=== PATIENT | female | born 1940 | race Caucasian/White ===

== ENCOUNTER → 2018-04-13 | Day surgery (SDC) | payer OTHER ==
[~2018-04-13] MED LIST: ASPIRIN EC 325 MG TAB PO ONE; ATROPINE SULFATE 1 MG/10 ML SYR IVP PRN; CLOPIDOGREL BISULFATE 75 MG TAB ONE; CLOPIDOGREL BISULFATE 75 MG TAB PO ONE; DIAZEPAM 5 MG TAB PO ONE; FAMOTIDINE 20 MG TAB PO ONE; IOPAMIDOL (ISOVUE 370) 100 ML BTL IV ONE; IOPAMIDOL (ISOVUE-300) 100 ML BTL ONE; IOPAMIDOL (ISOVUE-370) 150 ML BTL IV ONE; LIDOCAINE 1% 300 MG/30 ML SDV ONE; MIDAZOLAM 2 MG/2 ML VIAL ONE; NITROGLYCERIN 0.4 MG BTL SL PRN; NS 1,000 ML IV ONE; ONDANSETRON 4 MG/2 ML VIAL IVP PRN; diphenhydrAMINE 25 MG CAP PO ONE; fentaNYL 100 MCG/2 ML INJ ONE; hydrALAZINE 20 MG/ML VIAL ONE
--- NOTE | 2018-04-13 09:21 | CPEKG ---
Heart Rate: 56 RR Interval: 1071 P-R Interval: 196 QRSD Interval: 102 QT Interval: 444 QTC Interval: 429 P [place]: 64 QRS [place]: -15 T Wave [place]: 95 EKG Severity - ABNORMAL ECG - EKG Impression: SINUS RHYTHM EKG Impression: PROBABLE LEFT VENTRICULAR HYPERTROPHY Electronically Signed By: Rosendo Hathaway 13-Apr-2018 11:05:29
--- NOTE | 2018-04-13 09:36 | PDPROPOC ---
Sedation Plan of Care Sedation Plan of Care: mental status noted, patient educated of risks, benefits , alternatives, patient can tolerate sedation ASA Classification: ASA 2 Planned drugs: fentanyl, midazolam Mallampati Score: Class 2 Mallampati Reference Image: Patient passed 3-3-2 rule?: Yes
--- NOTE | 2018-04-13 09:37 | PDHPUP ---
History & Physical Update H&P update statement: This history and physical update is based on an assessment of the patient which was completed after admission or registration (within 24 hours), but prior to the surgery/procedure. H&P update: H&P reviewed & patient examined, no change in patient's condition since H&P completed
[2018-04-13 09:57] LABS: INR 1.02 (0.83-1.16); PLATELET COUNT 134 10^3/uL (150-400); PROTIME(PATIENT) 13.6 SEC (12.0-15.0)
--- NOTE | 2018-04-13 10:20 | GCON ---
[f rep st] CONSULTATION DATE OF CONSULTATION: 04/13/2018 REFERRING PHYSICIAN: Sony Marti MD Patient is seen at the request of Dr. Marti with the patient's permission. IMPRESSION: 1. Critical aortic stenosis with presyncope. 2. Obesity. 3. Hypertension. 4. Insulin-dependent diabetes mellitus. 5. Gastroesophageal reflux disease osteoporosis. 6. Breast cancer without residual. RECOMMENDATIONS: This patient appears somewhat frail and has had several falls, more due to balance, but could be related to aortic stenosis as well. She does complain of dyspnea on exertion and has b een found to have critical aortic stenosis, undergoing diagnostic left heart cath today. If there is no significant or not treatable coronary disease with a PCI, I would agree with TAVR being her best option. Her surgical risks would be increased somewhat because of her obesity and diabetes, but I be lieve her rehab would be markedly prolonged. Given her obesity and her age and comorbidities, I do f eel that she represents a more frail candidate and would be better served with TAVR; however, if she is found to have critical coronary disease not treatable by PCI, we would offer her surgical interven tion at moderate risk. CHIEF COMPLAINT: The patient is here because of progressive dyspnea on exertion and chest pain over the last several months. She had a recent fall, it is uncertain whether it is balance or related to aortic stenosis. She did not lose consciousness. She did hit her head without residual. Her exerci se stress test confirmed velocities greater than 400. PAST MEDICAL HISTORY: As stated previously. PAST SURGICAL HISTORY: Thymectomy, cholecystectomy, hysterectomy, knee replacements x2, mastectomy o n the right, and a trigger finger on the right release. MEDICATIONS: Documented in her H and P. PHYSICAL EXAMINATION: GENERAL: This is very alert, oriented, cooperative, and pleasant 78-year-old female alone in the room awaiting catheterization. She is obese. HEART: Rate is regular with signi ficant murmur. LUNGS: Clear. ABDOMEN: Soft, nontender, markedly protuberant. Bowel sounds are ac tive. EXTREMITIES: There is 1+ pretibial edema. Pedal pulses are 2+ and symmetrical. SOCIAL HISTORY: Socially, she never smoked and does not drink, and she lives with her daughter. Her exercise is limited due to her dyspnea on exertion. /[id number]/MODL
--- NOTE | 2018-04-13 13:31 | CPIP ---
[f rep st] INVASIVE CARDIAC PROCEDURE DATE OF PROCEDURE: 04/13/2018 INDICATION FOR PROCEDURE: Shortness of breath, aortic stenosis. PROCEDURE: 1. Left groin sheathogram. 2. 7-[place]stonian sheath left common vein. 3. Right heart catheterization with [place] catheter. 4. Bilateral selective angiography. 5. Abdominal aortogram. HISTORY: Briefly, this is a 78-year-old female with worsening shortness of breath over the last 6 mo nths. She had an echocardiogram performed, which showed severe aortic stenosis with a valve area of 1 .0 cm; however, her mean gradients were only moderately increased. She underwent a dobutamine stress echo, which showed that these gradients increased significantly with the dobutamine infusion. Due to findings, patient consented for right and left heart catheterization. DESCRIPTION OF PROCEDURE: After informed consent, the patient was brought to [facility] where the left groin was prepped and draped in sterile fashion. Using lidocaine, a short 6-Estonian s reyna, left femoral artery verified angiographically. A 7-Estonian sheath, left common vein. [place] catheter was then advanced. RA wedge pressure was mean of 17, A-wave 17, V-wave 20, PA pressure was s ystolic 63, diastolic 31 with a mean of 42. RV pressure was systolic 54, diastolic of 12 with an end of 17. RA pressure was mean of 18, A-wave 20 with a V-wave of 20. Cardiac output was measured to be 5 .0 by Ton with a cardiac index of 2.8. After this was obtained, the right heart catheter was removed. A JL catheter was then advanced. Image s of the left coronary artery revealed normal left main. Left circumflex artery appeared to be a left dominant circulation giving off a healthy left LPDA. There appeared to be a marginal 1 proximally, w hich appeared to be free of disease. The LPDA and LPS appeared to be healthy and free of disease. The LAD was a long vessel, which appeared to be diminutive distally, but appeared to be healthy and free of disease. There was a large diagonal artery coming off the midportion of the LAD, which appeared t o be healthy and free of disease. After the images were obtained, the JR4 catheter was removed. The J R4 catheter was advanced to the right coronary artery. The right coronary artery revealed a nondomina nt RCA with no significant disease. After the images were obtained, the JR4 catheter was removed. The pigtail catheter was advanced to the ascending aorta. Abdominal aortogram was obtained, which norberto wed patent ascending aorta, patent bilateral common external, internal iliac arteries. The pigtail ca theter was removed over the 0.035 wire. The right groin was closed with 6-[place] Angio-Seal. The left groin was closed with manual pressure. Patient tolerated the procedure well with no complications. IMPRESSION: 1. Essentially bilaterally normal coronary arteries and left dominant circulation. 2. Moderately severe pulmonary hypertension. PLAN: Given the patient's underlying symptoms, we will obtain CT of the chest, abdomen, and pelvis, as well as carotid ultrasound and lower extremity venous ultrasound as well for further assessment. T he patient should be able to be discharged later today after test are performed. /[id number]/MODL
== END | disposition home or self-care (01) ==
LOC: FCATH 08:57
PROVIDERS: ATTEND Internal Medicine Cardiovascular Disease
PROC: B2111ZZ Fluoroscopy of Multiple Coronary Arteries using Low Osmolar Contrast (ICD-10-PCS; principal; 2018-04-13)
PROC: B2161ZZ Fluoroscopy of Right and Left Heart using Low Osmolar Contrast (ICD-10-PCS; principal; 2018-04-13)
PROC: 4A023N8 Measurement of Cardiac Sampling and Pressure, Bilateral, Percutaneous Approach (ICD-10-PCS; principal; 2018-04-13)
DX: I35.0 Nonrheumatic aortic (valve) stenosis (principal); I27.20 Pulmonary hypertension, unspecified
CPT/HCPCS: C1760; J0360; J1644; J2250; J3010; Q9967

== ENCOUNTER 2018-12-18 13:41 | Observation (INO) | payer OTHER ==
[2018-12-18 14:33] LABS: PLATELET COUNT 150 10^3/uL (150-400)
--- NOTE | 2018-12-18 14:39 | EDPHY ---
H & P Stated Complaint: irregular heart rate chest pressure for 3 days Time Seen by Provider: 12/18/18 14:07 HPI/ROS: CHIEF COMPLAINT: Chest pressure, shortness of breath HISTORY OF PRESENT ILLNESS: 78-year-old female s/p AVR presents with chest pain and shortness of breath. 2 days ago, she was walking up stairs and 1st noticed exertional shortness of breath, associated with moderate chest pressure. The symptoms resolved with rest. Since that time, she has continued to have moderate exertional chest pain and shortness of breath. Associated with intermittent palpitations. On Plavix. No recent illness or fever. No prior history of CAD. REVIEW OF SYSTEMS: complete 10 point ROS reviewed and is negative except for the noted elements in the HPI Source: Patient - Personal History Current Tetanus Diphtheria and Acellular Pertussis (TDAP): Yes - Medical/Surgical History Hx Asthma: No Hx Chronic Respiratory Disease: No Hx Diabetes: Yes Hx Cardiac Disease: Yes Hx Renal Disease: No Hx Cirrhosis: No Hx Alcoholism: No Hx HIV/AIDS: No Hx Splenectomy or Spleen Trauma: No Other PMH: aortic valve replacement - Social History Smoking Status: Never smoked Alcohol Use: Sober Drug Use: None - Physical Exam Exam: General Appearance: Alert, pleasant Eyes: Pupils equal and round, no conjunctival pallor ENT, Mouth: Mucous membranes moist Neck: Normal inspection Respiratory: Lungs are clear to auscultation Cardiovascular: Regular rate and rhythm Gastrointestinal: Abdomen is soft and nontender Neurological: A&O, nonfocal exam Skin: Warm and dry, no rash Extremities: Nontender, no pedal edema Psychiatric: Mood and affect normal Constitutional: Initial Vital Signs Temperature (C) 37 C 12/18/18 13:52 Heart Rate 70 12/18/18 13:52 Respiratory Rate 18 12/18/18 13:52 Blood Pressure 173/70 H 12/18/18 13:52 O2 Sat (%) 93 12/18/18 13:52 O2 Delivery Mode Room Air Allergies/Adverse Reactions: cinnamon Allergy (Verified 12/18/18 13:49) codeine Allergy (Verified 12/18/18 13:49) Rash morphine Allergy (Verified 12/18/18 13:49) Dyspnea Penicillins Allergy (Verified 12/18/18 13:49) Rash fragrances Allergy (Uncoded 04/09/18 09:38) Home Medications: Medication Instructions Recorded Albuterol [Proventil Inhaler HFA 1 - 2 puffs IH DAILY PRN 04/09/18 (*)] Aspirin [Aspirin 81mg (*)] 81 mg PO DAILY 04/09/18 Insulin Glargine [Lantus 100 20 - 50 units SC HS 04/09/18 UNITS/ML] Levothyroxine [Synthroid 100 mcg 100 mcg PO RITTER 04/09/18 (*)] Levothyroxine [Synthroid 50 mcg 50 mcg PO MOTUWETHFRSA 04/09/18 (*)] Lisinopril [Zestril 2.5 mg (*)] 2.5 mg PO DAILY 04/09/18 Omeprazole 20 mg PO DAILY 04/09/18 Triamcinolone 0.1% [Triamcinolone 1 lance TP DAILY PRN 04/09/18 0.1% Cream (*)] Acetaminophen [Tylenol 325mg (*)] 650 mg PO Q6HRS tab 04/29/18 Clopidogrel Bisulfate [Plavix (*)] 75 mg PO DAILY #30 tab 04/29/18 C/E/Zn/Cu/OM3/DHA/EPA/LUT/ZEAX 1 each PO BID 12/18/18 [Preservision Areds 2 Softgel] Carvedilol [Coreg (*)] 6.25 mg PO BIDMEAL 12/18/18 Insulin Lispro [Humalog Kwikpen 6 - 25 unit SQ TIDMEAL 12/18/18 U-100] predniSONE 40 mg PO DAILY #8 tablet 12/20/18 Medical Decision Making - Diagnostics EKG Interpretation: EKG interpreted by me reveals normal sinus rhythm, rate 74, left bundle branch block. Interpretation: Abnormal EKG Similar to EKG dated 04/28/2018. Imaging Results: CXR: cardiomegaly Imaging: I viewed and interpreted images myself ED Course/Re-evaluation: This pt presents with exertional cp and SOB. Concern for ACS, pulm edema. stat EKG: no ischemia or dysrhythmia, CXR unremarkable. trop nl. d-dimer minimally elevated, normal when corrected for age. Low riskfor PE by Well's criteria. Further eval for PE not indicated. BNP elevated, c/w CHF. Lasix 20mg IV given. The hospitalist service was consulted for admission. Pt stable throughout her ED stay. - Data Points Laboratory Results: Laboratory Results 12/18/18 14:11 12/18/18 14:11 Medications Given: Discontinued Medications Aspirin (Aspirin) 81 mg PO DAILY [facility] Stop: 06/17/19 08:59 Last Admin: 12/20/18 08:10 Dose: 81 mg Carvedilol (Coreg) 6.25 mg PO BIDMEAL [facility] Stop: 06/16/19 20:29 Last Admin: 12/20/18 08:11 Dose: 6.25 mg Clopidogrel Bisulfate (Plavix) 75 mg PO DAILY [facility] Stop: 06/17/19 08:59 Last Admin: 12/20/18 08:11 Dose: 75 mg Enoxaparin Sodium (Lovenox) 40 mg SC DAILY [facility] Stop: 06/17/19 08:59 Last Admin: 12/20/18 08:10 Dose: 40 mg Furosemide (Lasix Injection) 20 mg IVP [facility] Stop: 12/18/18 15:43 Last Admin: 12/18/18 15:45 Dose: 20 mg Insulin Glargine (Lantus Syringe) 20 - 50 units SC HS [facility] Stop: 06/16/19 20:59 Last Admin: 12/19/18 21:57 Dose: 30 units Insulin Human Lispro (Humalog Lispro) 0 unit SC TIDMEAL [facility] PRN Reason: Protocol Stop: 06/17/19 07:59 Last Admin: 12/20/18 12:16 Dose: 2 units Levothyroxine Sodium (Synthroid) 100 mcg PO Ritter@0600 [facility] Stop: 06/18/19 05:59 Last Admin: 12/20/18 06:28 Dose: 100 mcg Levothyroxine Sodium (Synthroid) 50 mcg PO MoTuWeThFrSa@0600 [facility] Stop: 06/17/19 05:59 Last Admin: 12/19/18 06:16 Dose: 50 mcg Lisinopril (Zestril) 2.5 mg PO DAILY [facility] Stop: 06/17/19 08:59 Last Admin: 12/20/18 08:11 Dose: 2.5 mg Multivitamins/Minerals (Preservision Areds2 Formula) 1 each PO BID [facility] Stop: 06/16/19 20:59 Last Admin: 12/20/18 08:11 Dose: 1 each Pantoprazole Sodium (Protonix) 40 mg PO DAILY [facility] Stop: 06/17/19 08:59 Last Admin: 12/20/18 08:10 Dose: 40 mg Prednisone (Prednisone) 40 mg PO DAILY [facility] Stop: 06/18/19 10:29 Last Admin: 12/20/18 10:34 Dose: 40 mg Departure - Departure Disposition: [facility] [place] [facility] Acute Clinical Impression: Chest pain Qualifiers: Chest pain type: precordial pain Qualified Code(s): R07.2 - Precordial pain Congestive heart failure Qualifiers: Heart failure type: unspecified Heart failure chronicity: acute Qualified Code( s): I50.9 - Heart failure, unspecified Condition: Fair
[2018-12-18] MEDS ORDERED: FUROSEMIDE 20 MG/2 ML VIAL IVP ONE (15:42)
[2018-12-18] MEDS ORDERED: ACETAMINOPHEN 325 MG TAB PO PRN (17:59)
[2018-12-18] MEDS ORDERED: ONDANSETRON 4 MG/2 ML VIAL IVP PRN (17:59)
[2018-12-18] MEDS ORDERED: ONDANSETRON DISINTEGRATING 4 MG TAB PO PRN (17:59)
[2018-12-18] MEDS ORDERED: D50W 25 GM/50 ML SYR IVP PRN (18:06)
--- NOTE | 2018-12-18 18:21 | PDGENHP ---
History and Physical - Chief Complaint Chest pain w/ exertional shortness of breath - History of Present Illness HPI: 78 y/o female with hx of recent TAVR (April 2018), diabetes, hypertension, chronic kidney disease, DVTs (in ) presents the ED w/ c/o 3-days worth of exertional shortness of breath with associated mid-sternal chest pain, severity 6-7/10 and intermittent palpitations. Symptoms resolve at rest. Initially, she felt pain/pressure to her back w/ exertional shortness of breath but that has resolved completely. Symptoms are similar to what she felt prior to her TAVR in April 2018. She was hospitalized in 2018 d/t viral gastritis and after discharge, came back to the ED ([facility]) w/ RLE swelling and concerns of a DVT. US and chest CTA were performed and were negative for DVT. She did have elevated BNP at that time of 2064 w/ no evidence of fluid overload or CHF exacerbation. BNP today was 1860. CXR today showed chronic mild airway disease and minimal cardiomegaly. No failure or effusion. EKG showed SR, LBBB - unchanged from prior EKG in April 2018 a day after her TAVR procedure. Initial troponin is negative. Denies nausea, vomiting, vision changes, fevers, chills. She is being admitted for further diagnostic work-up and monitoring. History Information - Allergies/Home Medication List Allergies/Adverse Reactions: cinnamon Allergy (Verified 12/18/18 13:49) codeine Allergy (Verified 12/18/18 13:49) Rash morphine Allergy (Verified 12/18/18 13:49) Dyspnea Penicillins Allergy (Verified 12/18/18 13:49) Rash fragrances Allergy (Uncoded 04/09/18 09:38) Home Medications: Albuterol [Proventil Inhaler HFA (*)] 1 - 2 puffs IH DAILY PRN 04/09/18 [Last Taken 1 Day Ago ~04/12/18] Aspirin [Aspirin 81mg (*)] 81 mg PO DAILY 04/09/18 [Last Taken 12/18/18] Insulin Glargine [Lantus 100 UNITS/ML] 20 - 50 units SC HS 04/09/18 [Last Taken 12/17/18] Levothyroxine [Synthroid 100 mcg (*)] 100 mcg PO CISNEROS 04/09/18 [Last Taken ] Levothyroxine [Synthroid 50 mcg (*)] 50 mcg PO MOTUWETHFRSA 04/09/18 [Last Taken 12/18/18] Lisinopril [Zestril 2.5 mg (*)] 2.5 mg PO DAILY 04/09/18 [Last Taken 12/18/18] Omeprazole 20 mg PO DAILY 04/09/18 [Last Taken 12/18/18] Triamcinolone 0.1% [Triamcinolone 0.1% Cream (*)] 1 lance TP DAILY PRN 04/09/18 [ Last Taken 1 Week Ago ~04/06/18] C/E/Zn/Cu/OM3/DHA/EPA/LUT/ZEAX [Preservision Areds 2 Softgel] 1 each PO BID 05/31 [Last Taken 12/18/18] Carvedilol [Coreg (*)] 6.25 mg PO BIDMEAL 12/18/18 [Last Taken 12/18/18 am dose] Insulin Lispro [Humalog] 6 - 25 unit SQ TIDMEAL 12/18/18 [Last Taken 12/18/18 5 units in AM] I have personally reviewed and updated: family history, medical history, social history, surgical history - Past Medical History Additional medical history: Diabetes. Aortic stenosis. Basal cell carcinoma. Breast cancer. GERD. Hypertension. Osteopenia. Hypothyroidism - Surgical History Additional surgical history: TAVR (April 2018). BCC. Right bunionectomy. Cholecystecomy. Hysterectomy. Bilateral knee replacements. Right breast mastectomy - Family History Positive for: cancer (Mother w/ colon cancer), CAD, hypertension, myocardial infarction (Father and mother; both in 80s), stroke - Social History Smoking Status: Never smoked (Father and brother did smoke but she does not consider herself a second-hand smoke victim as they both went outside to smoke. ) Alcohol Use: Sober Drug Use: None Additional social history: . Stays active w/ arts and crafts, sewing. She is a psychic. Review of Systems Review of Systems: ROS: 10pt was reviewed & negative except for what was stated in HPI & below Physical Exam Physical Exam: Lab data and imaging were reviewed. Case discussed with admitting physician, Dr. Yodit Guzman. D-Dimer: 0.68 BNP: 1860 Troponin: 0.01 EKG: see HPI CXR: see HPI Temp Pulse Resp BP Pulse Ox 37 C 69 17 169/89 H 94 12/18/18 13:52 12/18/18 16:00 12/18/18 16:00 12/18/18 16:00 12/18/18 16:00 Constitutional: no apparent distress, appears nourished, not in pain, obese Eyes: PERRL, anicteric sclera, EOMI Ears, Nose, Mouth, Throat: moist mucous membranes, hearing normal, ears appear normal, no oral mucosal ulcers Cardiovascular: regular rate and rhythym, no murmur, rub, or gallop, No edema Peripheral Pulses: 2+: dorsalis-pedis (R) (Radial 2+), dorsalis-pedis (L) ( Radial 2+) Respiratory: no respiratory distress, no rales or rhonchi, clear to auscultation Gastrointestinal: normoactive bowel sounds, soft, non-tender abdomen, no palpable masses Genitourinary: no bladder fullness, no bladder tenderness Skin: warm, normal color, no rashes or abrasions, no fluctuance, no induration, No mottled Musculoskeletal: full muscle strength, no muscle tenderness, normal joint ROM, no joint effusions Neurologic: AAOx3, sensation intact bilaterally, CN II-XII Intact Psychiatric: interacting appropriately, not anxious, not encephalopathic, thought process linear Lymph, Heme, Immunologic: no cervical LAD, no supraclavicular LAD Lab Data & Imaging Review 12/18/18 14:11 12/18/18 14:11 WBC 5.87 10^3/uL (3.80-9.50) 12/18/18 14:11 RBC 4.81 10^6/uL (4.18-5.33) 12/18/18 14:11 Hgb 15.2 g/dL (12.6-16.3) 12/18/18 14:11 Hct 46.3 % (38.0-47.0) 12/18/18 14:11 MCV 96.3 fL (81.5-99.8) 12/18/18 14:11 MCH 31.6 pg (27.9-34.1) 12/18/18 14:11 MCHC 32.8 g/dL (32.4-36.7) 12/18/18 14:11 RDW 15.7 % (11.5-15.2) H 12/18/18 14:11 Plt Count 150 10^3/uL (150-400) 12/18/18 14:11 MPV 10.2 fL (8.7-11.7) 12/18/18 14:11 Neut % (Auto) 68.3 % (39.3-74.2) 12/18/18 14:11 Lymph % (Auto) 17.7 % (15.0-45.0) 12/18/18 14:11 Bland % (Auto) 7.8 % (4.5-13.0) 12/18/18 14:11 Eos % (Auto) 4.8 % (0.6-7.6) 12/18/18 14:11 Baso % (Auto) 0.7 % (0.3-1.7) 12/18/18 14:11 Nucleat RBC Rel Count 0.0 % (0.0-0.2) 12/18/18 14:11 Absolute Neuts (auto) 4.01 10^3/uL (1.70-6.50) 12/18/18 14:11 Absolute Lymphs (auto) 1.04 10^3/uL (1.00-3.00) 12/18/18 14:11 Absolute Monos (auto) 0.46 10^3/uL (0.30-0.80) 12/18/18 14:11 Absolute Eos (auto) 0.28 10^3/uL (0.03-0.40) 12/18/18 14:11 Absolute Basos (auto) 0.04 10^3/uL (0.02-0.10) 12/18/18 14:11 Absolute Nucleated RBC 0.00 10^3/uL (0-0.01) 12/18/18 14:11 Immature Gran % 0.7 % (0.0-1.1) 12/18/18 14:11 Immature Gran # 0.04 10^3/uL (0.00-0.10) 12/18/18 14:11 D-Dimer 0.68 ug/mLFEU (0.00-0.50) H 12/18/18 14:11 Sodium 138 mEq/L (135-145) 12/18/18 14:11 Potassium 4.7 mEq/L (3.5-5.2) 12/18/18 14:11 Chloride 104 mEq/L (97-110) 12/18/18 14:11 Carbon Dioxide 24 mEq/l (22-31) 12/18/18 14:11 Anion Gap 10 mEq/L (6-14) 12/18/18 14:11 BUN 18 mg/dL (7-23) 12/18/18 14:11 Creatinine 1.0 mg/dL (0.6-1.0) 12/18/18 14:11 Estimated GFR 53 12/18/18 14:11 Glucose 176 mg/dL (70-100) H 12/18/18 14:11 Calcium 8.9 mg/dL (8.5-10.4) 12/18/18 14:11 POC Troponin I 0.01 ng/mL (0.00-0.08) 12/18/18 17:21 NT-Pro-B Natriuret Pep 1860 pg/mL (0-450) H 12/18/18 14:11 Assessment & Plan Assessment: 78 y/o female with hx including recent TAVR, HTN, diabetes, and hypothyroidism presents with 3 days worth of exertional shortness of breath associated with mid -sternal chest pressure that resolves at rest. It does not radiate down the arm or up her neck. She did experience for a short period of time back pressure but she hasn't experienced this sensation lately. 1. Chest pain 2/2 suspected stable angina: Symptoms are similar to what she felt prior to receiving TAVR. Heart score 5 (mod suspicious, age, risk factors , repolarization issues). EKG a day after TAVR and today shows no acute changes. Last year ECHO w/ mild MVR. I will repeat an echo to assess any significant changes. Cycle trops x 2. EKG PRN should she become symptomatic. Cont tele monitoring. Received Lasix IVP in ED d/t BNP, CXR results and recently diagnosed with HFrEF in Aug 2018 d/t decreased EF from recent echo ( May 2018) . I will not continue diuretics for now as she appears euvolemic, CTAB, no pedal edema. On coreg. 2. Dysphagia: She expresses in August 2018 having difficulty swallowing; had an EGD and found to have an esophageal stricture on EGD. Had dilation of this stricture w/ a few benign polyps removed. Reports no difficulty swallowing since then. 3. 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 She may continue her glargine while here. ACCU checks TID before meals. 4. HTN: on lisinopril. Stable. 5. Hypothyroidism: cont L4T Diet: Carb-controlled VTE ppx: SCDs, Lovenox subq Code: Full Dispo: Admit to obs
--- NOTE | 2018-12-18 18:32 | CPEKG ---
Test Reason : OPEN Blood Pressure : / mmHG Vent. Rate : 074 BPM Atrial Rate : 074 BPM P-R Int : 197 ms QRS Dur : 153 ms QT Int : 448 ms P-R-T Axes : 044 -35 101 degrees QTc Int : 497 ms Sinus rhythm Left bundle branch block Confirmed by Camila Melgoza ([id number]) on 12/18/2018 6:32:14 PM Referred By: PHYSICIAN ED Confirmed By:Camila Melgoza
[2018-12-18] MEDS ORDERED: TRIAMCINOLONE 0.1% 15 GM CRTUBE TP PRN (19:51)
[2018-12-18] MEDS ORDERED: ALBUTEROL 60 PUFFS/8 GM MDI IH PRN (19:51)
[2018-12-18] MEDS: PRESERVISION AREDS2 FORMULA EYE VIT 1 EACH PO SCH (21:01)
[2018-12-18] MEDS: CARVEDILOL 6.25 MG TAB PO SCH (21:01)
--- NOTE | 2018-12-18 22:21 | HOSPPROG ---
Hospitalist Progress Note Assessment/Plan: Pt's chart reviewed, seen and examined, discussed with Clarissa Carvajal. Pt is s/p TAVR 04/2018, presents with exertional dyspnea. BNP is elevated. She received 20 mg IV Lasix in the ED. Not significantly volume overloaded on exam. Note h/ o left heart cath in 04/2018 showed normal coronary arteries and moderate pulmonary hypertension. Agree with trending trop and echo. Will request cardiology consult for am. See H&P by Clarissa Carvajal MARKETING ANALYST for further details. Objective: Vital Signs Temp Pulse Resp BP Pulse Ox 36.8 C 69 15 135/72 H 90 L 12/18/18 20:55 12/18/18 21:01 12/18/18 20:55 12/18/18 21:01 12/18/18 20:55 12/17/18 12/18/18 12/19/18 05:59 05:59 05:59 Output Total 400 Balance -400 ICD10 Worksheet Patient Problems: Problems Problem Status Onset Aortic stenosis Acute
[2018-12-18] MEDS: INSULIN GLARGINE 100 UNITS/ML UNIT SC SCH (22:31)
[2018-12-19 04:57] LABS: PLATELET COUNT 127 10^3/uL (150-400)
[2018-12-19] MEDS ORDERED: LEVOTHYROXINE 50 MCG TAB PO SCH (06:00)
[2018-12-19] MEDS: INSULIN LISPRO 100 UNIT/ML SC SCH ×3 (07:34→17:15)
[2018-12-19] MEDS: CLOPIDOGREL BISULFATE 75 MG TAB PO SCH (09:21)
[2018-12-19] MEDS: LISINOPRIL 2.5 MG TAB PO SCH (09:21)
[2018-12-19] MEDS: ENOXAPARIN 40 MG/0.4 ML SYR SC SCH (09:22)
[2018-12-19] MEDS: PRESERVISION AREDS2 FORMULA EYE VIT 1 EACH PO SCH ×2 (09:22→21:57)
[2018-12-19] MEDS: ASPIRIN 81 MG CHEWABLE TAB PO SCH (09:22)
[2018-12-19] MEDS: PANTOPRAZOLE SODIUM 40 MG TAB PO SCH (09:22)
[2018-12-19] MEDS: CARVEDILOL 6.25 MG TAB PO SCH ×2 (09:22→18:33)
--- NOTE | 2018-12-19 12:14 | ECHO ---
[email or web address] [address] [address] Main: [phone] Echocardiography Examination Transthoracic Name: LAM CAMARENA MR#: [id number] Study Date: 12/18/2018 Study Time: 04:40 PM Date of : 1940 Age: 78 year(s) Height: 162.6 cm (64 in.) Weight: 86.18 kg (190 lb.) BSA: 1.91 m2 Gender: Female Examination: Indication: Chest pain/SOB/hx of TAVR 2018 Image Quality: Adequate Contrast: Requested by: ?? BP: / Heart Rate: Rhythm: Indication: Chest pain/SOB/hx of TAVR 2018 Procedure Staff Referring Physician: Warehouse Order Puller: Sakshi Sy RDCS Reading Physician: Tyler Montalvo MD Requesting Provider: Indication: Chest pain/SOB/hx of TAVR 2018 Measurements Chambers AV/MV Label Value Normal Value Label Value Normal Value EF lower range (%) 60 % AV PGmean 5 mmHg EF upper range (%) 65 % RALPH D (continuity eq. 1.7 cm2 IVSd, 2D 1.3 cm (0.6cm - 1.1cm) VTI) LVDd, 2D 5.1 cm (3.9cm - 5.3cm) MV A Vmax 1.06 m/s LVDs, 2D 3.6 cm (2.1cm - 4cm) MV E' lateral 0.03 m/s LVEF, 2D 58 % (54% - 74%) MV E' mean 0.03 m/s LVEF, BP 62 % (55% - 70%) MV E' septal 0.03 m/s LVEF, MOD2 69 % (55% - 70%) MV E Vmax 0.55 m/s LVEF, MOD4 58 % (55% - 70%) MV E/A 0.52 LVOT PGmean 2 mmHg MV E/E' lateral 17 LVOT Vmean 0.66 m/s MV E/E' mean 18.33 LVOTd 1.9 cm (1.8cm - 2cm) MV E/E' septal 19.4 (0.45 - 1.25) LVPWd, 2D 1 cm LA Area, A2C 19.2 cm2 (0cm2 - 20cm2) LA Volume, A2C 56 ml (22ml - 52ml) LADs, 2D 5.2 cm (2.7cm - 3.8cm) Additional Vessels Label Value Normal Value AoAsc 2.7 cm Patient: LAM CAMARENA Study Date: 12/18/2018 Page 1 of 2 04:40 PM Conclusions Left ventricular systolic ejection fraction was normal (60-65%). Mild left atrial dilation Normally functioning aortic bioprosthesis with mean gradient of 5 mm Hg Findings Left Ventricle: Diastolic dysfunction is present.. Left ventricle is normal in size. Normal global systolic left ventricular function. EF range is estimated at 60 % - 65 %. There is mild concentric left ventricular hypertrophy. There is no regional wall motion abnormalities. Right Ventricle: Normal size right ventricle. Left Atrium: The left atrium is mildly dilated. Mitral Valve: There is mild mitral annular calcification.. Trivial mitral regurgitation. Aortic Valve: AV Core valve in place. Normally functioning aortic valve prosthesis. AV max PG is 10mmHG. AV mean PG is 5mmHG.. No aortic valve regurgitation. Tricuspid Valve: Tricuspid valve leaflets are structurally normal. Trivial tricuspid regurgitation. Pulmonic Valve: Pulmonic valve is poorly visualized. Mild pulmonic valve regurgitation is present. Aorta: The ascending aorta measures 2.7 cm. Pericardium: A pericardial fat pad is present. Exam Details Procedure Status: Routine study Image Quality: Adequate Facility Location: Cardiac Echo 1 (No Signature Object) Patient: LAM CAMARENA Study Date: 12/18/2018 Page 2 of 2 04:40 PM [id number]
[2018-12-19] MEDS ORDERED: IPRATROPIUM/ALBUTEROL 3 ML DEYVIAL IH PRN (14:52)
--- NOTE | 2018-12-19 14:56 | HOSPPROG ---
Hospitalist Progress Note Assessment/Plan: 78 y/o female with hx including recent TAVR, HTN, diabetes, and hypothyroidism presents with 3 days worth of exertional shortness of breath associated with mid -sternal chest pressure that resolves at rest. 1. Chest pain/SOB: Symptoms are similar to what she felt prior to receiving TAVR. Heart score 5 (mod suspicious, age, risk factors, repolarization issues) . EKG a day after TAVR and today shows no acute changes. Last year ECHO w/ mild MVR. Repeat TTE from this AM showing normal LVEF, diastolic dysfunction, no RWMA. Troponin cycled overnight which were negative. EKG PRN should she become symptomatic. Cont tele monitoring. Received Lasix IVP in ED d/t BNP, CXR results and recently diagnosed with HFrEF in Aug 2018 d/t decreased EF from recent echo (May 2018) . I will not continue diuretics for now as she appears euvolemic, CTAB, no pedal edema. On coreg. D-dimer elevated on admission to 0.68, will proceed with CTA Chest to r/o PE this afternoon given negative w/u as above 2. Dysphagia: She expresses in August 2018 having difficulty swallowing; had an EGD and found to have an esophageal stricture on EGD. Had dilation of this stricture w/ a few benign polyps removed. Reports no difficulty swallowing since then. 3. 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 She may continue her glargine while here. ACCU checks TID before meals. 4. HTN: on lisinopril. Stable. 5. Hypothyroidism: cont L4T Diet: Carb-controlled VTE ppx: SCDs, Lovenox subq Code: Full Dispo: Pending clinical course Subjective: Patient reports ONTIVEROS this AM Objective: Vital Signs Temp Pulse Resp BP Pulse Ox 36.9 C 65 14 147/79 H 96 12/19/18 11:53 12/19/18 11:53 12/19/18 11:53 12/19/18 11:53 12/19/18 11:53 Laboratory Results 12/19/18 03:28 12/19/18 03:28 12/18/18 12/19/18 12/20/18 05:59 05:59 06:59 Intake Total 500 Output Total 1300 500 Balance -800 -500 - Physical Exam Constitutional: chronically ill appearing Eyes: PERRL Ears, Nose, Mouth, Throat: moist mucous membranes Cardiovascular: regular rate and rhythym Respiratory: no respiratory distress, reduced air movement Gastrointestinal: soft, non-tender abdomen Skin: warm Neurologic: AAOx3 Psychiatric: interacting appropriately ICD10 Worksheet Patient Problems: Problems Problem Status Onset Aortic stenosis Acute
[2018-12-19] MEDS ORDERED: IOPAMIDOL (ISOVUE 370) 100 ML BTL IV ONE (15:35)
--- NOTE | 2018-12-19 17:01 | ASMTCMCOM ---
CM Note CM Note Notes: Pt is an 78y/o female with a hx of recent TAVR (April 2018), diabetes, hypertension, chronic kidney disease and DVT's (during ) presented to the ED c/o 3 days of exertional sob associated with chest pain and palpitations.Pt presently lives with her daughter; she expressed interest in affordable housing options. CM gave her resources for obtaining Section 8 and housing options for seniors in [facility]. OT/PT has not yet been ordered. CM will follow. D/C Plan: TBD Date Signed: 12/19/2018 05:01 PM Electronically Signed By:Shari Killian
[2018-12-19] MEDS: INSULIN GLARGINE 100 UNITS/ML UNIT SC SCH (21:57)
[2018-12-20] MEDS ORDERED: LEVOTHYROXINE 100 MCG TAB PO SCH (06:00)
[2018-12-20] MEDS: ASPIRIN 81 MG CHEWABLE TAB PO SCH (08:10)
[2018-12-20] MEDS: PANTOPRAZOLE SODIUM 40 MG TAB PO SCH (08:10)
[2018-12-20] MEDS: ENOXAPARIN 40 MG/0.4 ML SYR SC SCH (08:10)
[2018-12-20] MEDS: PRESERVISION AREDS2 FORMULA EYE VIT 1 EACH PO SCH (08:11)
[2018-12-20] MEDS: CLOPIDOGREL BISULFATE 75 MG TAB PO SCH (08:11)
[2018-12-20] MEDS: CARVEDILOL 6.25 MG TAB PO SCH (08:11)
[2018-12-20] MEDS: LISINOPRIL 2.5 MG TAB PO SCH (08:11)
[2018-12-20] MEDS: INSULIN LISPRO 100 UNIT/ML SC SCH ×2 (08:17→12:16)
[2018-12-20] MEDS ORDERED: predniSONE 20 MG TAB PO SCH (10:30)
[2018-12-20 11:35] VITALS: BP 125/59
--- NOTE | 2018-12-20 12:31 | ASDISCHSUM ---
Discharge Information Plan Status:Home with No Needs Medically Cleared to Leave: Discharge Date: D/C Disposition:Home, Routine, Self-Care ADT D/C Disposition: Projected Discharge Date:12/20/2018 12:00 AM Transportation at D/C:Family Discharge Delay Reason: Follow-Up Date:12/20/2018 12:00 AM Discharge Slot: Final Diagnosis: Placement Information Patient Contact Information Contact Name:KARLA Relationship:Daughter Address: Work Phone: City: [facility] Phone: State/Zip Code: Email: Financial Information Financial Class:Medicare Advantage Plans Primary Plan Desc:[employer] PLANS Primary Plan Number:[id number] Secondary Plan Desc: Secondary Plan Number: Assessment Information LACE LACE Length of stay for Answers: 1 day current admission Acuity / Level of Answers: No Care: Did the patient have an inpatient admission? Comorbidities - select Answers: Any tumor (including all that apply lymphoma or leukemia) Congestive heart failure Diabetes (uncontrolled or controlled) Other Notes: HTN, chronic kidney disease. # of Emergency department Answers: 1-2 visits in the last 6 months Score: 8 Date Signed: 12/20/2018 12:30 PM Electronically Signed By:FAIZAN Harper [facility] Progress Note CM Note REGINA Note Notes: Pt is an 78y/o female with a hx of recent TAVR (April 2018), diabetes, hypertension, chronic kidney disease and DVT's (during ) presented to the ED c/o 3 days of exertional sob associated with chest pain and palpitations.Pt presently lives with her daughter; she expressed interest in affordable housing options. CM gave her resources for obtaining Section 8 and housing options for seniors in [facility]. OT/PT has not yet been ordered. CM will follow. D/C Plan: TBD Date Signed: 12/19/2018 05:01 PM Electronically Signed By:Shari Killian Case Management Discharge Plan Note Case Management Discharge Discharge Order Complete? Answers: Yes Patient to Obtain Answers: via Family Medications Transportation Arranged Answers: Family/Friends Discharge Comments Notes: CM discussed discharge plan with pt. Family is coming to pick her up. She was appreciative of information on affordable housing and plans to follow-up. Pt reported no other concerns. No other CM needs identified. Pt will follow-up in outpatient as indicated. Date Signed: 12/20/2018 12:29 PM Electronically Signed By:FAIZAN Harper Intervention Information
--- NOTE | 2018-12-20 12:37 | PDDCSUM ---
Discharge Summary Discharge Summary: Date of Admission: 12/18/2018 Date of Discharge: 12/20/2018 Consults: N/A Procedures: TTE, CTA Chest Followup: PCP, Cardiology Hospital Course Problem List: 78 y/o female with hx including recent TAVR, HTN, diabetes, and hypothyroidism presents with 3 days worth of exertional shortness of breath. 1. Chest pain/SOB: Symptoms are similar to what she felt prior to receiving TAVR. EKG a day after TAVR and from this admission shows no acute changes. Last year ECHO w/ mild MVR. Repeat TTE from 12/19 showing normal LVEF, diastolic dysfunction, no RWMA. Troponin cycled which were negative. Received Lasix IVP in ED d/t BNP, CXR results and recently diagnosed with HFrEF in Aug 2018 d/t decreased EF from recent echo (May 2018) . I did not continue diuretics for now as she appears euvolemic, CTAB, no pedal edema. On coreg. D-dimer elevated on admission to 0.68, performed CTA Chest to r/o PE which was negative for acute abnormality. Patient likely with acute exacerbation of chronic airway disease. Started on Prednisone 40 mg qd for total 5 day course upon discharge. 2. Dysphagia: She expresses in August 2018 having difficulty swallowing; had an EGD and found to have an esophageal stricture on EGD. Had dilation of this stricture w/ a few benign polyps removed. Reports no difficulty swallowing since then. 3. 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 She may continue her glargine while here. ACCU checks TID before meals. 4. HTN: on lisinopril. Stable. 5. Hypothyroidism: cont L4T Time spent on discharge was >35 minutes with >50% of time spent on patient education and counseling.
== END 2018-12-20 13:51 | disposition home or self-care (01) ==
LOC: F2W 17:05
PROVIDERS: ADMIT Hospitalist; ATTEND Internal Medicine
DX: R07.9 Chest pain, unspecified (principal); R06.02 Shortness of breath; R13.10 Dysphagia, unspecified; I50.9 Heart failure, unspecified; E11.22 Type 2 diabetes mellitus with diabetic chronic kidney disease; I12.9 Hypertensive chronic kidney disease with stage 1 through stage 4 chronic kidney disease, or unspecified chronic kidney disease; E03.9 Hypothyroidism, unspecified; N18.9 Chronic kidney disease, unspecified; Z95.2 Presence of prosthetic heart valve; Z85.3 Personal history of malignant neoplasm of breast; Z96.653 Presence of artificial knee joint, bilateral
CPT/HCPCS: 71046; 71275; 93005; 93306; 96372; 96374; 99285; G0378; J1650; J1815; J1940; J7512; Q9967; 84484-ER